=== PATIENT | female | born 1960 | race Caucasian/White ===

== ENCOUNTER 2017-09-03 07:16 | Emergency (ER) | payer BC, OTHER ==
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
[2017-09-03] MEDS ORDERED: Diph,Pert(Acell),Tet Vac 0.5 ML SYR IM ONE (07:42)
[2017-09-03 08:00] LABS: BASO % 0.5 % (0-6); EOS % 1.8 % (0-6); GRAN % 66.8 % (47-80); HEMATOCRIT 40.4 % (35.0-47.0); HEMOGLOBIN 13.8 gm/dl (11.6-16.0); MEAN CORPUSCULAR HEMOGLOBIN 32.1 pg (27-33); MEAN CORPUSCULAR HGB CONC 34.2 g/dl (32-36); MEAN PLATELET VOLUME 10.8 fl (7.4-10.4); MONO % 8.9 % (0-9); PLATELET COUNT 399 K/uL (130-400); RED CELL DISTRIBUTION WIDTH 13.8 % (11.5-14.5); WHITE BLOOD COUNT W/O DIFF 11.2 K/uL (4.2-12.2)
[2017-09-03 08:12] LABS: BLOOD UREA NITROGEN 15 mg/dL (6-20); CREATININE 0.7 mg/dL (0.5-0.9); EST GLOMERULAR FILTRATION RATE > 60 mL/min
[2017-09-03 08:13] LABS: TOTAL PROTEIN 7.6 g/dL (6.6-8.7)
[2017-09-03 08:15] LABS: GLUCOSE,RANDOM 136 mg/dL (74-109)
[2017-09-03 08:17] LABS: ALT/SGPT 11 U/L (<33); AST/SGOT 20 U/L (10.0-35.0)
[2017-09-03 08:18] LABS: ALB/GLOB RATIO 1.8 (1.1-1.8); ALBUMIN 4.9 g/dL (4.0-5.0); ALKALINE PHOSPHATASE 90 U/L (35-104)
[2017-09-03] MEDS ORDERED: ACETAMINOPHEN 325 MG TAB PO ONE (09:01)
[2017-09-03] MEDS ORDERED: TOPICAL LIDOCAINE W/ EPI 5 ML TOP ONE (09:06)
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
== END 2017-09-03 10:10 | disposition home or self-care (01) ==
LOC: ER 07:16
DX: S61.441A Puncture wound with foreign body of right hand, initial encounter (principal); S60.811A Abrasion of right wrist, initial encounter; S50.12XA Contusion of left forearm, initial encounter; S70.12XA Contusion of left thigh, initial encounter; S70.11XA Contusion of right thigh, initial encounter; S80.212A Abrasion, left knee, initial encounter; S80.211A Abrasion, right knee, initial encounter; I10 Essential (primary) hypertension; F17.210 Nicotine dependence, cigarettes, uncomplicated; V03.10XA Pedestrian on foot injured in collision with car, pick-up truck or van in traffic accident, initial encounter; Y92.410 Unspecified street and highway as the place of occurrence of the external cause
CPT/HCPCS: 11042; 80053; 85025; 90715; 96372; 99284